=== PATIENT | female | born 1990 | race Caucasian/White ===

== ENCOUNTER 2017-03-22 09:14 | Emergency (ER) | payer MEDICAID ==
[~2017-03-22] VITALS: Ht 160 cm; Wt 74.8 kg
[2017-03-22 09:21] VITALS: BP 122/70
[2017-03-22] MEDS ORDERED: IBUPROFEN 800 MG TAB PO ONE (09:45)
== END 2017-03-22 09:50 | disposition home or self-care (01) ==
LOC: ER 09:14
DX: K04.7 Periapical abscess without sinus (principal); F17.210 Nicotine dependence, cigarettes, uncomplicated

== ENCOUNTER 2017-08-18 16:09 | Emergency (ER) | payer MEDICAID ==
[~2017-08-18] VITALS: Ht 160 cm; Wt 68.0 kg
[2017-08-18 16:30] VITALS: BP 117/68
== END 2017-08-18 20:41 | disposition left against medical advice (07) ==
LOC: ER 16:09
DX: R42 Dizziness and giddiness (principal); Z53.21 Procedure and treatment not carried out due to patient leaving prior to being seen by health care provider
CPT/HCPCS: 82962

== ENCOUNTER 2017-11-13 09:06 | Emergency (ER) | payer MEDICAID ==
[~2017-11-13] VITALS: Ht 157.5 cm; Wt 74.8 kg
[2017-11-13 09:47] VITALS: BP 110/62
== END 2017-11-13 10:33 | disposition home or self-care (01) ==
LOC: ER 09:06
DX: S00.83XA Contusion of other part of head, initial encounter (principal); F17.210 Nicotine dependence, cigarettes, uncomplicated; Y08.89XA Assault by other specified means, initial encounter; Y93.89 Activity, other specified; Y99.8 Other external cause status; Y92.89 Other specified places as the place of occurrence of the external cause
CPT/HCPCS: 70450

== ENCOUNTER 2018-06-22 18:29 | Emergency (ER) | payer MEDICAID ==
[~2018-06-22] VITALS: Ht 154.9 cm; Wt 71.7 kg
[2018-06-22 18:43] VITALS: BP 135/74
[2018-06-22] MEDS ORDERED: KETOROLAC TROMETH 60MG/2ML VIAL IM ONE (21:00)
[2018-06-22] MEDS ORDERED: cefTRIAXone SOD 1,000 MG VL IM ONE (21:00)
== END 2018-06-22 21:28 | disposition home or self-care (01) ==
LOC: ER 18:32
DX: K04.7 Periapical abscess without sinus (principal); F17.210 Nicotine dependence, cigarettes, uncomplicated
CPT/HCPCS: 96372; 99283; J0696; J1885